=== PATIENT | male | born 1965 | race Caucasian/White ===

== ENCOUNTER 2017-04-11 14:18 | Inpatient (IN) | payer BC ==
[2017-04-11] VITALS (20 sets, daily range): BP systolic 101–130; BP diastolic 61–84; PULSE 80–109; RESP 17–19; Ht 170.2 cm; Wt 94.0 kg
[~2017-04-11] VITALS: Ht 170.2 cm; Wt 94.0 kg
[~2017-04-11 14:18] MED LIST: ACET-2158 PO; ALBU18HF INH; FURO-109 PO; LEVO500T72 PO; LISI-523 PO; Thiamine Hcl PO; UDROBAC PO
[2017-04-11] MEDS ORDERED: LEVO500T72 PO (14:46)
[2017-04-11] MEDS ORDERED: HYDR-902 PO (14:48)
[2017-04-11] MEDS: LACTATED RINGER'S 1,000 ML IV SCH (16:20)
--- NOTE | 2017-04-11 16:21 | HPN ---
Date/Time of Note Date/Time of Note DATE: 04/11/17 TIME: 16:21 Interval H&P Admission Note Pt. seen H&P reviewed: No system changes BILLY TESFAYE PA-C Apr 11, 2017 16:21
[2017-04-11] MEDS ORDERED: HYDROmorphONE 1 MG/ML SYG IV ONE (16:30)
[2017-04-11 16:45] LABS: BASOPHILS % 0.2 % (0.0-2.0); EOSINOPHILS # 0.1 10^3/ul (0.0-0.5); EOSINOPHILS % 0.7 % (0.0-7.0); HEMATOCRIT 37.3 % (42.0-52.0); LYMPHOCYTES # 1.1 10^3/ul (0.8-2.9); LYMPHOCYTES % 12.6 % (15.0-51.0); MEAN CORPUSCULAR HEMOGLOBIN 32.5 pg (29.0-33.0); MEAN CORPUSCULAR HGB CONC 34.9 g/dl (32.0-37.0); MEAN CORPUSCULAR VOLUME 93.3 fl (82.0-101.0); MEAN PLATELET VOLUME 9.9 fl (7.4-10.4); MONOCYTE # 0.7 10^3/ul (0.3-0.9); MONOCYTES % 7.2 % (0.0-11.0); NEUTROPHIL # 7.1 10^3/ul (1.6-7.5); PLATELET COUNT 452 10^3/UL (140-415); RED CELL DISTRIBUTION WIDTH 12.5 % (11.5-14.5)
[2017-04-11] MEDS ORDERED: VANCOMYCIN 1 GM INJ ONE (16:46)
[2017-04-11] MEDS ORDERED: TOBRAMYCIN 1.2 GM POWDER ONE (16:47)
--- NOTE | 2017-04-11 17:04 | RADRPT ---
PROCEDURE: CHEST X-RAY CLINICAL INDICATION: Preop evaluation TECHNIQUE: One-view COMPARISON: 04/01/2014 FINDINGS: Heart size and pulmonary vascularity appears unremarkable. No acute infiltrates, edema, pneumothorax noted. IMPRESSION: No acute process noted radiographically RPTAT: AAOO Physician Lidia Date Time Electronically viewed and signed by Refugio Staton Physician on 04/11/2017 17:03 MB/
[2017-04-11] MEDS ORDERED: MIDAZOLAM 1 MG/ML 2 ML INJ ONE (17:06)
[2017-04-11] MEDS ORDERED: PROPOFOL 20 ML ONE (17:06)
[2017-04-11] MEDS ORDERED: PROPOFOL 100 ML ONE ×2 (17:07→17:12)
[2017-04-11] MEDS ORDERED: DEXAMETHASONE 4 MG/ML 1 ML INJ ONE (17:07)
[2017-04-11] MEDS ORDERED: METOCLOPRAMIDE 10 MG INJ ONE (17:07)
[2017-04-11] MEDS ORDERED: CEFAZOLIN 1 GM INJ ONE (17:07)
[2017-04-11] MEDS ORDERED: ACETAMINOPHEN 1000MG/100ML IV 100 ML ONE (17:07)
[2017-04-11 17:08] LABS: INR 0.98; PROTIME 13.1 Sec (11.9-14.9)
[2017-04-11] MEDS ORDERED: FENTAnyl 50 MCG/ML VIAL ONE (17:08)
[2017-04-11 17:09] LABS: PARTIAL THROMBOPLASTIN TIME 32.2 Sec (25.0-35.0)
[2017-04-11] MEDS ORDERED: ROPIVACAINE 0.5 % 30 ML VIAL ONE (17:10)
[2017-04-11 17:22] LABS: CALCIUM 10.1 mg/dl (8.4-10.2); CREATININE 0.73 mg/dl (0.61-1.24); POTASSIUM 4.3 mmol/L (3.5-5.1)
[2017-04-11] MEDS ORDERED: ONDANSETRON 4 MG INJ ONE (17:42)
[2017-04-11] MEDS ORDERED: PHENYLephrine (100 MCG/ML) 5ML SYG ONE ×3 (17:44→18:31)
[2017-04-11] MEDS ORDERED: POLYMYXIN B 500000 UNIT INJ ONE (18:28)
[2017-04-11] MEDS ORDERED: BACITRACIN 50000 UNITS INJ ONE (18:29)
[2017-04-11] MEDS ORDERED: BUPIVACAINE 0.25% (MPF) 30 ML INJ ONE (18:58)
[2017-04-11] MEDS ORDERED: morphine SULFATE/PF (10 MG/10 ML) INJ ONE (18:58)
[2017-04-11] MEDS ORDERED: KETOROLAC 30 MG INJ ONE (18:59)
[2017-04-11] MEDS ORDERED: BUPIVACAINE 0.25%/EPI (SDV) 30 ML INJ INJ SCH (19:00)
[2017-04-11] MEDS ORDERED: KETOROLAC 30 MG INJ IV SCH (19:00)
[2017-04-11] MEDS ORDERED: TRANEXAMIC ACID 1,000 MG in D5W 100 ML AT INCISION X1 IVPB ONE (19:00)
[2017-04-11] MEDS ORDERED: MORPHINE EPI SCH (19:00)
[2017-04-11] MEDS ORDERED: TRANEXAMIC ACID 1,000 MG in D5W 100 ML AT CLOSURE X1 IVPB ONE (19:00)
--- NOTE | 2017-04-11 19:19 | SIPON ---
Date/Time of Note Date/Time of Note DATE: 04/11/17 TIME: 19:15 Operative Report Preoperative Diagnosis Postop infection right hip Postoperative Diagnosis Same Operation/Procedure Performed Right hip I&D and had a liner exchange placement of antibiotic beads Surgeon see signature line director of assisted living DENNIS aguayo Anesthesia: spinal Estimated blood loss: 150 - 200 ml's Transfusion Required none Specimen Cultures Grafts/Implants 36 mm revision ceramic head and 56 mm neutral polyethylene Complications none SRINIVAS MOHAN Apr 11, 2017 19:19
--- NOTE | 2017-04-11 19:22 | OPR ---
Date/Time of Note Date/Time of Note DATE: 04/11/17 TIME: 19:19 Operative Report Procedure Date: Apr 11, 2017 Preoperative Diagnosis Postop infection right hip Postoperative Diagnosis Same Operation/Procedure Performed Revision of right hip replacement with head and liner exchange as well as I&D and placement of antibiotic beads Surgeon see signature line Fountain Manager Cj Castillo Second Fountain Manager: BILLY TESFAYE PA-C Anesthesia Type: spinal Estimated Blood Loss: 150 - 200 ml's Transfusion none Specimen Cultures Grafts/Implants depuy 36 mm ceramic revision head and 56 x 36 mm polyethylene Tubes/Drains ZACK drain Complications none Pt Condition Post Procedure: stable Disposition: PACU Indications 51-year-old male who had a right hip replacement about 3 months ago. The patient developed increased pain and swelling. Aspiration of the hip showed infection Procedure Description Patient was placed supine on the operating room table. Right hip was prepped and draped in the usual manner. Using the previous anterior approach the right hip was opened. Purulent material was encountered in the intermuscular planes as well as intra-articularly. The hip capsule was opened. There was granulation tissue that was sent for culture. Swabs from the fluid were also sent for culture. Part of the necrotic material was excised. The hip implants appear to be well fixed. The femoral head and acetabular liner was removed. The hip was thoroughly irrigated with 3 L of antibiotic solution. After this a new 56 x 36 mm liner and a new revision ceramic femoral head was placed the hip was reduced and the hip thoroughly irrigated and injected with Marcaine and Toradol. The wound was closed in layers using #1 Vicryl for arthrotomy and fascia 2-0 Vicryl for subcutaneous tissue and 3-0 Monocryl for the skin prior to closure of the wound a drain was placed. Antibiotic beads were prepared with 1 g of vancomycin and 1.2 g of tobramycin. The beads were placed in the wound as well. Patient was transferred to the recovery room in stable condition SRINIVAS MOHAN Apr 11, 2017 19:22
--- NOTE | 2017-04-11 19:30 | PDOCDIS ---
Discharge Instructions DIAGNOSIS Discharge Diagnosis Status post right hip incision and drainage as well as head and liner exchange. CONDITION Patient Condition: Good HOME CARE INSTRUCTIONS: Diet Instructions: Regular ACTIVITY: Activity Restrictions: Slowly Increase Activity Rest between Activity Avoid heavy lifting No Sexual Activity Do not Drive Do not operate Machinery Do not operate Power Tool Avoid Heavy Housework Keep Limb Elevated (May use cold therapy over surgical dressing.) Weight Bearing (Weight-bear as tolerated with front wheeled walker.) Bathing Restrictions: Shower (Mepilex dressing to remain on until seen postoperatively. Keep surgical area clean and dry.) FOLLOW UP/APPOINTMENTS Follow-up Plan Follow-up at postoperative appointment provided to you at your preoperative visit. BILLY TESFAYE PA-C Apr 11, 2017 19:30
[2017-04-11] MEDS: SOD CHLORIDE 0.9% 1,000 ML IV SCH (19:31)
[2017-04-11] MEDS ORDERED: NA PHOSPHATE/BIPHOS 133 ML ENEMA PR PRN (20:00)
[2017-04-11] MEDS ORDERED: BETHANECHOL 25 MG TAB PO PRN (20:00)
[2017-04-11] MEDS ORDERED: NACL 0.9% 3 ML SYG IV SCH (20:00)
[2017-04-11] MEDS ORDERED: SENNA/DOCUSATE NA (8.6MG/50MG) TAB PO PRN (20:00)
[2017-04-11] MEDS ORDERED: DIPHENHYDRAMINE 50 MG INJ IM PRN (20:00)
[2017-04-11] MEDS ORDERED: MAGNESIUM HYDROXIDE 30ML CUP PO PRN (20:00)
[2017-04-11] MEDS ORDERED: DOCUSATE SODIUM 100 MG CAP PO ONE (20:00)
[2017-04-11] MEDS ORDERED: DIPHENHYDRAMINE 50 MG INJ IV PRN (20:00)
[2017-04-11] MEDS ORDERED: BISACODYL 10 MG SUPP PR PRN (20:00)
[2017-04-11] MEDS ORDERED: HYDROmorphONE (0.2 MG/ML) 10ML SYG IV PRN ×3 (20:00)
[2017-04-11] MEDS ORDERED: ASPIRIN (EC) 325 MG TAB PO ONE (20:00)
[2017-04-11] MEDS: ONDANSETRON 4 MG INJ IV SCH (20:00)
[2017-04-11] MEDS ORDERED: oxyCODONE 5 MG TAB PO PRN ×2 (20:00)
[2017-04-11] MEDS ORDERED: MEPERIDINE 25 MG INJ IV PRN (20:00)
[2017-04-11] MEDS ORDERED: NALOXONE (0.4 MG/ML) INJ IV PRN (20:00)
[2017-04-11] MEDS ORDERED: ONDANSETRON 4 MG INJ IV PRN (20:00)
[2017-04-11] MEDS ORDERED: ZOLPIDEM 5 MG TAB PO PRN (20:00)
[2017-04-11] MEDS: CEFAZOLIN 1 GM/50 ML (PMX) 50 ML IVPB SCH (20:15)
[2017-04-11] MEDS: morphine 4 MG/ML VIAL IV PRN (23:50)
[2017-04-12] MEDS: ONDANSETRON 4 MG INJ IV SCH ×3 (01:41→14:00)
[2017-04-12 01:54] VITALS: BP 132/74; PULSE 98; RESP 18
[2017-04-12 02:13] VITALS: BP 119/57; RESP 18
[2017-04-12] MEDS: morphine 4 MG/ML VIAL IV PRN (03:25)
[2017-04-12] MEDS: HYDROCODONE/APAP (10/325) TAB PO PRN (04:37)
[2017-04-12] MEDS: CEFAZOLIN 1 GM/50 ML (PMX) 50 ML IVPB SCH ×2 (04:37→12:00)
[2017-04-12] MEDS: PANTOPRAZOLE (EC) 40 MG TAB PO SCH (05:07)
[2017-04-12] MEDS: SOD CHLORIDE 0.9% 1,000 ML IV SCH ×2 (05:08→23:47)
[2017-04-12 05:31] LABS: BASOPHILS % 0.2 % (0.0-2.0); EOSINOPHILS # 0.1 10^3/ul (0.0-0.5); EOSINOPHILS % 0.7 % (0.0-7.0); HEMATOCRIT 30.5 % (42.0-52.0); HEMOGLOBIN 10.3 g/dl (14.0-18.0); LYMPHOCYTES # 0.9 10^3/ul (0.8-2.9); LYMPHOCYTES % 9.9 % (15.0-51.0); MEAN CORPUSCULAR HEMOGLOBIN 32.3 pg (29.0-33.0); MEAN CORPUSCULAR HGB CONC 33.8 g/dl (32.0-37.0); MEAN CORPUSCULAR VOLUME 95.6 fl (82.0-101.0); MEAN PLATELET VOLUME 10.4 fl (7.4-10.4); MONOCYTE # 0.6 10^3/ul (0.3-0.9); MONOCYTES % 6.7 % (0.0-11.0); NEUTROPHIL # 7.2 10^3/ul (1.6-7.5); NEUTROPHILS % 81.8 % (39.0-77.0); PLATELET COUNT 358 10^3/UL (140-415); RED BLOOD COUNT 3.19 10^6/ul (4.70-6.10); RED CELL DISTRIBUTION WIDTH 12.2 % (11.5-14.5); WHITE BLOOD COUNT 8.8 10^3/ul (4.8-10.8)
[2017-04-12 06:23] LABS: CREATININE 0.85 mg/dl (0.61-1.24); POTASSIUM 4.4 mmol/L (3.5-5.1)
[2017-04-12 06:34] LABS: ADD UMIC YES; UR ASCORBIC ACID NEGATIVE (NEGATIVE); UR BACTERIA FEW /HPF (NONE SEEN); UR BILIRUBIN (Dip) NEGATIVE (NEGATIVE); UR BLOOD (Dip) 1+ mg/dL (NEGATIVE); UR CLARITY SLIGHTLY CLOUDY (CLEAR); UR COLOR YELLOW (YELLOW); UR GLUCOSE (Dip) NEGATIVE (NEGATIVE); UR KETONES (Dip) NEGATIVE (NEGATIVE); UR LEUKOCYTE ESTERASE (Dip) NEGATIVE Leu/ul (NEGATIVE); UR MUCUS FEW /HPF (NONE SEEN); UR NITRITE (Dip) NEGATIVE (NEGATIVE); UR RBC 2 /HPF (0-5); UR SPECIFIC GRAVITY (Dip) 1.019 (1.003-1.030); UR TOTAL PROTEIN (Dip) 1+ mg/dl (NEGATIVE); UR UROBILINOGEN (Dip) NEGATIVE (NEGATIVE)
[2017-04-12 07:55] VITALS: BP 133/79; RESP 20
[2017-04-12] MEDS: KETOROLAC 15 MG INJ IV PRN ×2 (07:55→15:02)
[2017-04-12 08:00] VITALS: BP 129/60; RESP 20
[2017-04-12] MEDS: FERROUS FUMARATE (SR) TAB PO SCH ×2 (08:34→20:52)
[2017-04-12] MEDS: ASPIRIN (EC) 325 MG TAB PO SCH (08:34)
[2017-04-12] MEDS: DOCUSATE SODIUM 100 MG CAP PO SCH ×2 (08:35→20:52)
[2017-04-12] MEDS: oxyCODONE 5 MG TAB PO PRN ×5 (08:39→23:47)
--- NOTE | 2017-04-12 08:47 | CONS ---
Date/Time of Note Date/Time of Note DATE: 04/12/17 TIME: 08:40 Assessment/Plan Assessment/Plan Additional Assessment/Plan ASSESSMENT 51-year-old male with a history of diverticulitis status post colon resection and right hip surgery 3 months ago complicated by postop infection who is now status post revision of right hip replacement with head and liner exchange as well as I&D and placement of antibiotic beads. PLAN -Continue pain medications and adjust as needed -DVT prophylaxis per Ortho Consultation Date/Type/Reason Admit Date/Time Apr 11, 2017 at 14:18 Reason for Consultation Medical management Hx of Present Illness This is a 51-year-old male with a history of diverticulitis status post colon resection and right hip surgery 3 months ago complicated by postop infection. Patient is admitted under orthopedic service and underwent revision of right hip replacement with head and liner exchange as well as I&D and placement of antibiotic beads. Consult was placed for medical management. Patient's only complaint at this time is pain at the surgical site otherwise denied shortness of breath, chest pain, fever, chills, nausea or vomiting. He is alert and oriented 4 and actually looks comfortable. Social History Smoking Status: Former smoker Exam/Review of Systems Vital Signs Vitals Vital Signs Date Time Temp Pulse Resp B/P Pulse Ox O2 Delivery O2 Flow Rate FiO2 04/12/17 07:55 97.5 107 20 133/79 96 04/12/17 01:54 Nasal Cannula 2.0 Intake and Output 04/11/17 04/11/17 04/12/17 14:59 22:59 06:59 Intake Total 2000 ml 2450 ml Output Total 650 ml 2070 ml Balance 1350 ml 380 ml Exam Constitutional: alert, oriented, well developed Head: atraumatic, normocephalic Eyes: EOMI, PERRL Respiratory: clear to auscultation, normal air movement Cardiovascular: nl pulses, regular rate and rhythm Gastrointestinal: non-tender, soft Extremities: other (Right hip/thigh is covered with dressing was bled the output and ZACK drain) Results Result Diagram: 04/12/17 0449 04/12/17 0449 Results 24 hrs Laboratory Tests Test 04/11/17 16:30 04/12/17 04:49 04/12/17 04:50 White Blood Count 9.0 8.8 Red Blood Count 4.00 L 3.19 #L Hemoglobin 13.0 L 10.3 #L Hematocrit 37.3 L 30.5 L Mean Corpuscular Volume 93.3 95.6 Mean Corpuscular Hemoglobin 32.5 32.3 Mean Corpuscular Hemoglobin Concent 34.9 33.8 Red Cell Distribution Width 12.5 12.2 Platelet Count 452 H 358 # Mean Platelet Volume 9.9 # 10.4 Neutrophils % 79.0 H 81.8 H Lymphocytes % 12.6 L 9.9 L Monocytes % 7.2 6.7 Eosinophils % 0.7 0.7 Basophils % 0.2 0.2 Nucleated Red Blood Cells % 0.0 0.0 Neutrophils # 7.1 7.2 Lymphocytes # 1.1 0.9 Monocytes # 0.7 0.6 Eosinophils # 0.1 0.1 Basophils # 0.0 0.0 Nucleated Red Blood Cells # 0.0 0.0 Prothrombin Time 13.1 Prothrombin Time Ratio 1.0 INR International Normalized Ratio 0.98 Activated Partial Thromboplast Time 32.2 Sodium Level 138 137 Potassium Level 4.3 4.4 Chloride Level 98 99 Carbon Dioxide Level 29 29 Anion Gap 15 13 Blood Urea Nitrogen 10 13 Creatinine 0.73 0.85 Glucose Level 143 192 Calcium Level 10.1 9.0 Urine Color YELLOW Urine Clarity SLIGHTLY CLOUDY A Urine pH 5.0 Urine Specific [place] 1.019 Urine Ketones NEGATIVE Urine Nitrite NEGATIVE Urine Bilirubin NEGATIVE Urine Urobilinogen NEGATIVE Urine Leukocyte Esterase NEGATIVE Urine Microscopic RBC 2 Urine Microscopic WBC 3 Urine Bacteria FEW A Urine Mucus FEW A Urine Hemoglobin 1+ H Urine Glucose NEGATIVE Urine Total Protein 1+ H Medications Medications Current Medications Lactated Ringer's (Lr) 1,000 ml @ 25 mls/hr Q24H IV ; Start 04/11/17 at 16:20 Morphine Sulfate (Duramorph) 5 mg PREOP EPI ; Start 04/11/17 at 19:00 Ketorolac Tromethamine (Toradol) 30 mg PREOP IV ; Start 04/11/17 at 19:00; Stop 04/14/17 at 18:59 Bupivacaine HCl/ Epinephrine Bitart 30 ml 30 ml PREOP INJ ; Start 04/11/17 at 19:00 Sodium Chloride (NS) 1,000 ml @ 80 mls/hr [id number] IV Last administered on t 05:08; Admin Dose 80 MLS/HR; Start 04/11/17 at 19:31 Oxycodone HCl (Roxicodone) 20 mg Q3H PRN PO PAIN LEVEL 8-10; Start 04/11/17 at 20:00 Oxycodone HCl (Roxicodone) 10 mg Q3H PRN PO PAIN LEVEL 4-7; Start 04/11/17 at 20:00 Oxycodone HCl (Roxicodone) 5 mg Q3H PRN PO PAIN LEVEL 1-3; Start 04/11/17 at 20:00 Zolpidem Tartrate (Ambien) 5 mg HS PRN PO INSOMNIA; Start 04/11/17 at 20:00 Ondansetron HCl 4 mg 4 mg Q6H IV Last administered on 04/12/17 08:00; Admin Dose 4 MG; Start 04/11/17 at 20:00; Stop 04/12/17 at 14:01 Cefazolin Sodium (Ancef 1 Gm/50 ml (Pmx)) 50 ml @ 100 mls/hr Q8H IVPB Last administered on 04/12/17 04:37; Admin Dose 100 MLS/HR; Start 04/11/17 at 20: 00; Stop 04/12/17 at 12:29 Celecoxib (Celebrex) 100 mg BID PO ; Start 04/12/17 at 09:00 Pantoprazole (Protonix Tab) 40 mg DAILY@06 PO Last administered on 04/12/17 05:07; Admin Dose 40 MG; Start 04/12/17 at 06:00 Docusate Sodium/ Ferrous Fumarate (Lina-Sequels) 1 tab BID PO Last administered on 04/12/17 08:34; Admin Dose 1 TAB; Start 04/12/17 at 09:00 Docusate Sodium (Colace) 200 mg BID PO Last administered on 04/12/17 08:35; Admin Dose 200 MG; Start 04/12/17 at 09:00; Stop 04/14/17 at 21:01 Simethicone (Mylicon) 80 mg TID PRN PO DISTENSION/GAS/BLOATING; Start at 20:00 Senna/Docusate Sodium (Senokot-S) 2 tab BID PRN PO CONSTIPATION; Start at 20:00 Magnesium Hydroxide (Milk Of Mag) 30 ml HS PRN PO CONSTIPATION; Start at 20:00 Bisacodyl (Dulcolax Supp) 10 mg DAILY PRN [place] CONSTIPATION; Start 04/11/17 at 20:00 Sodium Biphosphate/ Sodium Phosphate (Fleet Enema) 133 ml DAILY PRN [place] CONSTIPATION; Start 04/11/17 at 20:00 Diphenhydramine HCl (Benadryl) 25 mg Q4H PRN IM ITCHING OR RASH; Start at 20:00 Ketorolac Tromethamine (Toradol) 15 mg PRN PRN IV PAIN Last administered on 07:55; Admin Dose 15 MG; Start 04/11/17 at 20:00; Stop 04/15/17 at 19: 59 Naloxone HCl (Narcan) 0.2 mg Q2M PRN IV DECREASED REPIRATORY RATE; Start at 20:00 Aspirin (Ecotrin) 325 mg DAILY PO Last administered on 04/12/17 08:34; Admin Dose 325 MG; Start 04/12/17 at 09:00 Morphine Sulfate (morphine) 4 mg Q4H PRN IV PAIN LEVEL 7-10 Last administered on 04/12/17 03:25; Admin Dose 4 MG; Start 04/12/17 at 00:00 Acetaminophen/ Hydrocodone Bitart ([place] (10/325)) 1 tab Q4H PRN PO PAIN Last administered on 04/12/17 04:37; Admin Dose 1 TAB; Start 04/12/17 at 00:00 AMILCAR FRY MD Apr 12, 2017 08:47
[2017-04-12] MEDS ORDERED: CELECOXIB 200 MG CAP PO SCH (09:00)
[2017-04-12] MEDS ORDERED: VANCOMYCIN IV PER PHARMACY XX SCH (09:30)
--- NOTE | 2017-04-12 10:21 | CONS ---
DATE OF ADMISSION: 04/11/2017 DATE OF CONSULTATION: 04/12/2017 TYPE OF CONSULTATION: Infectious disease. REASON FOR CONSULTATION: Antibiotic management. HISTORY OF PRESENT ILLNESS: Carlos Reynaga is a 51-year-old male with a number of problems who is a dmitted now for orthopedic problems, and is being seen for antibiotic management. Past problems include: 1. History of diverticulitis, status post colon resection. 2. Right hip surgery 3 months ago, complicated by postoperative infection. The patient was admitte d under the orthopedic service, underwent revision of right hip replacement with head and liner exch ivan as well as I and D and placement of antibiotic beads. The patient complains of pain at the freddy gical site, otherwise without shortness of breath or chest pain. PAST MEDICAL HISTORY: Operations as outlined. FAMILY HISTORY: Noncontributory. SOCIAL HISTORY: He is a former smoker. He does not drink or abuse drugs. ALLERGIES: NONE TO PENICILLIN, SULFA OR FOODS. MEDICATIONS: Per chart. REVIEW OF SYSTEMS: Noncontributory. PHYSICAL EXAMINATION: GENERAL: The patient is alert, responsive and complaining of pain in the hip, in no acute distress. VITAL SIGNS: Stable. He is afebrile. SKIN: Without generalized rash. HEENT: Within normal limits. NECK: Supple. LYMPH NODES: None palpable. CHEST: Decreased breath sounds at the bases. HEART: Without murmur or gallop. ABDOMEN: Soft, nontender, without organosplenomegaly or masses. EXTREMITIES: His right hip and thigh are covered with dressing. He has a ZACK drain. RECTAL AND GENITAL: Deferred. NEUROLOGIC: No focal neurological abnormalities. ANCILLARY LABORATORY DATA: The patient has a white count of 8.8, H and H of 10.3 and 30.5, platelet count 358,000. BUN and creatinine 13/0.85. IMPRESSION AND PLAN: Patient is currently on cefazolin. White count today is 8.8. He should be on vancomycin. We are going to switch him over to vancomycin. He will require probably 6 weeks of IV antibiotic therapy. I will dictate my findings to the hospitalist, to Dr. Rivas, and Dr. Yaw mccarthy. It should be noted that, if this is not successful, he may need the hip to be removed and a spacer p laced, but we will see how he does on IV antibiotics. Dictated By: MARINA CORDON MD, JD/SEBASTIEN Conf#: [id number] DID#: [id number] CC: SRINIVAS MOHAN MD;*EndCC*
[2017-04-12] MEDS ORDERED: VANCOMYCIN 1.75 GM in NS 500 ML IVPB SCH (10:30)
[2017-04-12] MEDS: CELECOXIB 100 MG CAP PO SCH ×2 (11:58→21:55)
--- NOTE | 2017-04-12 12:10 | PN ---
Date/Time of Note Date/Time of Note DATE: 04/12/17 TIME: 12:03 Assessment/Plan VTE Prophylaxis VTE Prophylaxis Intervention: ambulation, SCD's, other (Aspirin 325 mg) Lines/Catheters IV Catheter Type (from Nrsg): Saline Lock Gil in Place (from Nrsg): Yes Assessment/Plan Assessment/Plan -Pain Meds as needed -Dressing is clean and intact. -OOB with PT -ASA/SCDs for DVT Prophylaxis -Continue monitoring with Internal Medicine -Patient Stable -Expected discharge home with home health tomorrow. Patient has nobody at the house today. Subjective 24 Hr Interval Summary 51-year-old male postop day 1 status post right hip incision and drainage with head and liner exchange due to right hip infection status post total hip arthroplasty. No acute events overnight. Pain is moderate patient states is controlled. Has initiated physical therapy and has been up and walking. Currently seated comfortably in bed right now with hip at 90. No pain while seated. Denies any chest pain/tightness, shortness of breath. Denies any calf pain. Pain Control: moderate Exam/Review of Systems Vital Signs Vitals Vital Signs Date Time Temp Pulse Resp B/P Pulse Ox O2 Delivery O2 Flow Rate FiO2 04/12/17 07:55 97.5 107 20 133/79 96 04/12/17 01:54 Nasal Cannula 2.0 Intake and Output 04/11/17 04/11/17 04/12/17 15:00 23:00 07:00 Intake Total 2000 ml 2450 ml Output Total 650 ml 2070 ml Balance 1350 ml 380 ml Exam Free Text/Dictation -No complications with dressing intact. -Thigh soft -5/5 Quadriceps, Tibialis Anterior, EHL Gastrocnemius/Soleus and Peroneals -Normal Sensation -Palpable DP/PT, Capillary Refill <2 secs -No Distal Edema -Negative Maria Teresa Sign/No calf pain -Toes Freely Movable Constitutional: alert, oriented, well developed Results Result Diagram: 04/12/17 0449 04/12/17 0449 BILLY TESFAYE PA-C Apr 12, 2017 12:10
[2017-04-12 14:36] VITALS: BP 116/69; RESP 20
[2017-04-12] MEDS ORDERED: LIDOCAINE 1% (MPF) 5 ML VIAL SC ONE (16:00)
[2017-04-12] MEDS: LACTATED RINGER'S 1,000 ML IV SCH (16:20)
[2017-04-12] MEDS: CEFTRIAXONE 2 GM/50 ML (PMX) 50 ML IVPB SCH (19:09)
[2017-04-12 20:21] VITALS: BP 112/58; RESP 20
--- NOTE | 2017-04-12 21:58 | CONS ---
DATE OF ADMISSION: 04/11/2017 DATE OF CONSULTATION: ADDENDUM The patient had cultures done in the office prior to his coming in to the hospital and his cultures are growing out group B Strep or Strep agalactiae, which is sensitive to multiple antibiotics includ ing ceftriaxone and Levaquin. We are going to stop the vancomycin and we are going to place him on ceftriaxone 2 grams IV piggyback q.24h. x6 weeks and Levaquin 750 mg p.o. daily for 6 weeks. A PICC line will be placed. I have discussed this with Dr. Mohan. I want to thank him for asking us to see this yaritza gentleman in consultation. Dictated By: MARINA CORDON MD, JD/SEBASTIEN Conf#: [id number] DID#: [id number] CC: SRINIVAS MOHAN MD;*End*
[2017-04-12] MEDS ORDERED: VANCOMYCIN 1.25 GM in DEXTROSE 5% 250 ML IVPB SCH (22:00)
[2017-04-13 02:00] VITALS: BP 109/61; RESP 19
[2017-04-13] MEDS: oxyCODONE 5 MG TAB PO PRN ×3 (05:10→17:07)
[2017-04-13] MEDS: PANTOPRAZOLE (EC) 40 MG TAB PO SCH (05:53)
[2017-04-13 05:54] LABS: BASOPHILS % 0.3 % (0.0-2.0); EOSINOPHILS # 0.1 10^3/ul (0.0-0.5); EOSINOPHILS % 1.4 % (0.0-7.0); LYMPHOCYTES # 1.1 10^3/ul (0.8-2.9); LYMPHOCYTES % 12.1 % (15.0-51.0); MEAN CORPUSCULAR HEMOGLOBIN 32.4 pg (29.0-33.0); MEAN CORPUSCULAR HGB CONC 33.3 g/dl (32.0-37.0); MEAN CORPUSCULAR VOLUME 97.1 fl (82.0-101.0); MEAN PLATELET VOLUME 10.4 fl (7.4-10.4); MONOCYTE # 0.7 10^3/ul (0.3-0.9); MONOCYTES % 7.5 % (0.0-11.0); NEUTROPHIL # 7.2 10^3/ul (1.6-7.5); NEUTROPHILS % 78.4 % (39.0-77.0); PLATELET COUNT 324 10^3/UL (140-415); RED BLOOD COUNT 3.09 10^6/ul (4.70-6.10); RED CELL DISTRIBUTION WIDTH 12.4 % (11.5-14.5); WHITE BLOOD COUNT 9.2 10^3/ul (4.8-10.8)
[2017-04-13] MEDS ORDERED: LEVOFLOXACIN 750 MG TABLET PO SCH (06:00)
[2017-04-13 06:23] LABS: CALCIUM 9.4 mg/dl (8.4-10.2); CREATININE 0.86 mg/dl (0.61-1.24); POTASSIUM 4.6 mmol/L (3.5-5.1)
--- NOTE | 2017-04-13 08:04 | PN ---
Date/Time of Note Date/Time of Note DATE: 04/13/17 TIME: 08:02 Assessment/Plan VTE Prophylaxis VTE Prophylaxis Intervention: ambulation, SCD's, other (Aspirin 325 mg) Lines/Catheters IV Catheter Type (from Nrsg): Peripheral IV Gil in Place (from Nrsg): No Assessment/Plan Assessment/Plan -Pain Meds as needed -ASA for DVT Prophylaxis x 4 weeks outpatient discussed. -Continue monitoring as outpatient on discharge -Follow-up at scheduled postop outpatient appointment or sooner if there is any issue. -Hip precautions discussed -Patient Stable -Discharge to Home with home health. Patient will be discharged after PICC line placement and Rocephin transfusion today. Will be followed by infectious disease for the next 6 weeks. Subjective 24 Hr Interval Summary 51-year-old male postop day 2 status post right hip incision and drainage with replacement head and liner exchange. Continues to improve. Continues with mild pain to the hip mostly with transitioning from lying supine to sitting and from sitting to standing. Continues with physical therapy up and moving. Denies any chest pain/tightness, shortness of breath or calf pain. Patient had consult with infectious disease yesterday. PICC line being placed today. Expected discharge home today after Rocephin transfusion. Pain Control: well controlled Exam/Review of Systems Vital Signs Vitals Vital Signs Date Time Temp Pulse Resp B/P Pulse Ox O2 Delivery O2 Flow Rate FiO2 04/13/17 02:00 98.0 95 19 109/61 98 04/12/17 01:54 Nasal Cannula 2.0 Intake and Output 04/12/17 04/12/17 04/13/17 15:00 23:00 07:00 Intake Total 550 ml 790 ml 1460 ml Output Total 60 ml 2100 ml Balance 490 ml 790 ml -640 ml Exam Free Text/Dictation -No complications with dressing intact. -Thigh soft -5/5 Quadriceps, Tibialis Anterior, EHL Gastrocnemius/Soleus and Peroneals -Normal Sensation -Palpable DP/PT, Capillary Refill <2 secs -No Distal Edema -Negative Maria Teresa Sign/No calf pain -Toes Freely Movable Constitutional: alert, oriented, well developed Results Result Diagram: 04/13/17 0456 04/13/17 0456 BILLY TESFAYE PA-C Apr 13, 2017 08:04
[2017-04-13 08:30] VITALS: BP 112/71; RESP 19
[2017-04-13] MEDS: ASPIRIN (EC) 325 MG TAB PO SCH (08:50)
[2017-04-13] MEDS: DOCUSATE SODIUM 100 MG CAP PO SCH (08:50)
[2017-04-13] MEDS: KETOROLAC 15 MG INJ IV PRN (08:50)
[2017-04-13] MEDS: CELECOXIB 100 MG CAP PO SCH (08:50)
[2017-04-13] MEDS: FERROUS FUMARATE (SR) TAB PO SCH (08:50)
[2017-04-13] MEDS: SOD CHLORIDE 0.9% 1,000 ML IV SCH (09:01)
--- NOTE | 2017-04-13 10:51 | RADRPT ---
PROCEDURE: XR Chest. CLINICAL INDICATION: Check PICC line position. TECHNIQUE: Single frontal view. COMPARISON: No prior study is available for comparison. FINDINGS: There is a left arm PICC line with the tip in the mid to lower superior vena cava. The lungs are cl ear. The heart size is normal. There is no pleural effusion. There is no pneumothorax. IMPRESSION: 1. Left arm PICC line tip in satisfactory position. 2. Otherwise normal chest radiograph. RPTAT: QQ .Peter Watson MD, MD Date Time Electronically viewed and signed by .Peter Watson MD, MD on 04/13/2017 10:51 .R/
--- NOTE | 2017-04-13 10:52 | RADRPT ---
PROCEDURE: Ultrasound guidance for placement of needle in left upper extremity vein. CLINICAL INDICATION: Venous access. TECHNIQUE: Limited sonography of the left upper extremity was performed. Ultrasound images were recorded and s tored in the patient's medical record. COMPARISON: None. FINDINGS: The ultrasound images demonstrate a patent left upper extremity vein. The PICC line was inserted by the PICC line nurse. IMPRESSION: 1. Ultrasound guidance for a needle placement in a left upper extremity vein. 2. The left upper extremity vein is patent. RPTAT: QQ .Pteer Watson MD, MD Date Time Electronically viewed and signed by .Peter Watson MD, MD on 04/13/2017 10:51 .R/
[2017-04-13] MEDS ORDERED: SOD CHLORIDE 0.9% 100 ML ONE (10:54)
[2017-04-13] MEDS: HYDROCODONE/APAP (10/325) TAB PO PRN (13:21)
--- NOTE | 2017-04-13 14:49 | CONS ---
Date/Time of Note Date/Time of Note DATE: 04/13/17 TIME: 14:47 Consult Date/Type/Reason Admit Date/Time Apr 11, 2017 at 14:18 Initial Consult Date Subjective No acute events overnight, ordered for PICC, worked with physical therapy. Objective Vital Signs Date Time Temp Pulse Resp B/P Pulse Ox O2 Delivery O2 Flow Rate FiO2 04/13/17 08:30 98.9 110 19 112/71 94 04/12/17 01:54 Nasal Cannula 2.0 Intake and Output 04/12/17 04/12/17 04/13/17 15:00 23:00 07:00 Intake Total 550 ml 790 ml 1460 ml Output Total 60 ml 2100 ml Balance 490 ml 790 ml -640 ml Exam GENERAL: The patient is alert, responsive in no acute distress. HEENT: PERRLA, EOMI NECK: Supple. CHEST: Clear to auscultation bilaterally HEART: Without murmur or gallop. ABDOMEN: Soft, nontender, without organosplenomegaly or masses. EXTREMITIES: His right hip and thigh are covered with dressing. NEUROLOGIC: No focal neurological abnormalities. Results/Medications Result Diagram: 04/13/17 0456 04/13/17 0456 Results 24 hrs Laboratory Tests Test 04/13/17 04:56 White Blood Count 9.2 Red Blood Count 3.09 L Hemoglobin 10.0 L Hematocrit 30.0 L Mean Corpuscular Volume 97.1 Mean Corpuscular Hemoglobin 32.4 Mean Corpuscular Hemoglobin Concent 33.3 Red Cell Distribution Width 12.4 Platelet Count 324 Mean Platelet Volume 10.4 Neutrophils % 78.4 H Lymphocytes % 12.1 L Monocytes % 7.5 Eosinophils % 1.4 Basophils % 0.3 Nucleated Red Blood Cells % 0.0 Neutrophils # 7.2 Lymphocytes # 1.1 Monocytes # 0.7 Eosinophils # 0.1 Basophils # 0.0 Nucleated Red Blood Cells # 0.0 Sodium Level 138 Potassium Level 4.6 Chloride Level 99 Carbon Dioxide Level 31 Anion Gap 13 Blood Urea Nitrogen 10 Creatinine 0.86 Glucose Level 206 Calcium Level 9.4 Medications Current Medications Lactated Ringer's (Lr) 1,000 ml @ 25 mls/hr Q24H IV ; Start 04/11/17 at 16:20 Morphine Sulfate (Duramorph) 5 mg PREOP EPI ; Start 04/11/17 at 19:00 Ketorolac Tromethamine (Toradol) 30 mg PREOP IV ; Start 04/11/17 at 19:00; Stop 04/14/17 at 18:59 Bupivacaine HCl/ Epinephrine Bitart 30 ml 30 ml PREOP INJ ; Start 04/11/17 at 19:00 Sodium Chloride (NS) 1,000 ml @ 80 mls/hr [id number] IV Last administered on 23:47; Admin Dose 80 MLS/HR; Start 04/11/17 at 19:31 Oxycodone HCl (Roxicodone) 20 mg Q3H PRN PO PAIN LEVEL 8-10 Last administered on 04/13/17 11:06; Admin Dose 20 MG; Start 04/11/17 at 20:00 Oxycodone HCl (Roxicodone) 10 mg Q3H PRN PO PAIN LEVEL 4-7; Start 04/11/17 at 20:00 Oxycodone HCl (Roxicodone) 5 mg Q3H PRN PO PAIN LEVEL 1-3; Start 04/11/17 at 20:00 Zolpidem Tartrate (Ambien) 5 mg HS PRN PO INSOMNIA; Start 04/11/17 at 20:00 Pantoprazole (Protonix Tab) 40 mg DAILY@06 PO Last administered on 04/13/17 05:53; Admin Dose 40 MG; Start 04/12/17 at 06:00 Docusate Sodium/ Ferrous Fumarate (Lina-Sequels) 1 tab BID PO Last administered on 04/13/17 08:50; Admin Dose 1 TAB; Start 04/12/17 at 09:00 Docusate Sodium (Colace) 200 mg BID PO Last administered on 04/13/17 08:50; Admin Dose 200 MG; Start 04/12/17 at 09:00; Stop 04/14/17 at 21:01 Simethicone (Mylicon) 80 mg TID PRN PO DISTENSION/GAS/BLOATING; Start at 20:00 Senna/Docusate Sodium (Senokot-S) 2 tab BID PRN PO CONSTIPATION; Start at 20:00 Magnesium Hydroxide (Milk Of Mag) 30 ml HS PRN PO CONSTIPATION; Start at 20:00 Bisacodyl (Dulcolax Supp) 10 mg DAILY PRN HI CONSTIPATION; Start 04/11/17 at 20:00 Sodium Biphosphate/ Sodium Phosphate (Fleet Enema) 133 ml DAILY PRN HI CONSTIPATION; Start 04/11/17 at 20:00 Diphenhydramine HCl (Benadryl) 25 mg Q4H PRN IM ITCHING OR RASH; Start at 20:00 Ketorolac Tromethamine (Toradol) 15 mg PRN PRN IV PAIN Last administered on 08:50; Admin Dose 15 MG; Start 04/11/17 at 20:00; Stop 04/15/17 at 19: 59 Naloxone HCl (Narcan) 0.2 mg Q2M PRN IV DECREASED REPIRATORY RATE; Start at 20:00 Aspirin (Ecotrin) 325 mg DAILY PO Last administered on 04/13/17 08:50; Admin Dose 325 MG; Start 04/12/17 at 09:00 Morphine Sulfate (morphine) 4 mg Q4H PRN IV PAIN LEVEL 7-10 Last administered on 04/12/17 03:25; Admin Dose 4 MG; Start 04/12/17 at 00:00 Acetaminophen/ Hydrocodone Bitart ([place] (10/325)) 1 tab Q4H PRN PO PAIN Last administered on 04/13/17 13:21; Admin Dose 1 TAB; Start 04/12/17 at 00:00 Celecoxib 100 mg 100 mg BID PO Last administered on 04/13/17 08:50; Admin Dose 100 MG; Start 04/12/17 at 12:00 Ceftriaxone Sodium (Rocephin) 50 ml @ 100 mls/hr Q24H IVPB Last administered on 04/12/17 19:09; Admin Dose 100 MLS/HR; Start 04/12/17 at 19:00 Levofloxacin (Levaquin) 750 mg DAILY@06 PO Last administered on 04/13/17 05: 53; Admin Dose 750 MG; Start 04/13/17 at 06:00 IV Flush (NS 10 ml) 10 ml PRN PRN IV IV PROTOCOL; Start 04/13/17 at 11:00 Assessment/Plan Chief Complaint/Hosp Course ASSESSMENT: 51-year-old male with a history of diverticulitis status post colon resection and right hip surgery 3 months ago complicated by postop infection who is now status post revision of right hip replacement with head and liner exchange as well as I&D and placement of antibiotic beads, POD # 2. PLAN -Continue pain medications and adjust as needed -DVT prophylaxis per Ortho -IV antibiotics per ID and orthopedics team We will continue to follow along with you. Problems: TERRY MOREIRA Apr 13, 2017 14:49
[2017-04-13 16:00] VITALS: BP 111/66; RESP 20
[2017-04-13] MEDS: LACTATED RINGER'S 1,000 ML IV SCH (16:20)
[2017-04-13] MEDS: CEFTRIAXONE 2 GM/50 ML (PMX) 50 ML IVPB SCH (18:10)
--- NOTE | 2017-04-13 22:07 | PN ---
DATE: 04/13/2017 INFECTIOUS DISEASE PROGRESS NOTE SUBJECTIVE: No acute changes overnight. The patient is alert awaiting to be discharged home. He is in no distress and afebrile. ANTIMICROBIALS: 1. Rocephin. 2. Levaquin. DIAGNOSTICS: The patient had PICC line placed this morning, that was confirmed by chest x-ray. PHYSICAL EXAMINATION: GENERAL: Well-developed, middle-aged white man who is in no distress. HEENT: Head atraumatic, normocephalic. Sclerae anicteric. Buccal mucosa pink. NECK: Supple. CHEST: Rise symmetrical. Breath sounds clear. HEART: S1, S2. ABDOMEN: Soft, bowel tones present. EXTREMITIES: Without cyanosis. ASSESSMENT: History of right hip surgery complicated by postoperative infection, with culture grew group B strep or strep agalactia. The patient is status post revision of right hip replacement with head and liner exchange, as well as I and D and placement of antibiotic beads. PLAN: The patient remains stable pending discharge planning on Rocephin and Levaquin for 6 weeks. Dictated By: LIZBETH TOUSSAINT [employer] for MARINA CORDON MD NI/NTS Conf#: [id number] DID#: [id number] CC: SRINIVAS MOHAN MD;*EndCC*
--- NOTE | 2017-04-14 08:14 | DS ---
Date/Time of Note Date/Time of Note DATE: 04/14/17 TIME: 08:12 Discharge Summary Admission/Discharge Info Admit Date/Time Apr 11, 2017 at 14:18 Discharge Date/Time Apr 13, 2017 at 19:15 Discharge Diagnosis Status post right hip incision and drainage as well as head and liner exchange. Patient Condition: Good Hospital Course On the day of admission, the patient underwent right hip incision and drainage as well as head and liner exchange status post infection Intraoperative complications: None Postoperative complications: None The patient was given prophylactic antibiotics and anticoagulants. On the day of surgery and first postoperative day patient was started on gait training and was taught usual restrictions following hip replacement On postoperative day 1 dressing was clean dry and intact. No complications were observed. On the day of discharge, the wound was clean and healing well; there was no sign of infection. Wound care instructions were discussed with the patient. Discharge Temperature: 98.4 Discharge White Blood Cell Count: 9.2 Discharge Hemoglobin: 10 The patient was discharged home with home health. Arrangements were made for visiting nurses and home health/physical therapy. Patient also had PICC line placement while in hospital will continue to get Rocephin and vancomycin transfusion at home for 6 weeks status post hip infection. Currently being followed by infectious disease Dr. Ray. The patient will be seen in office at scheduled postoperative evaluation date given on their preoperative exam. Should patient complain of any problems prior to scheduled postoperative evaluation date, they may call into outpatient clinic to determine if they need to be scheduled at sooner appointment to be seen immediately if needed. Discharge medications: As per medication reconciliation form Diet: Same as preadmission diet. This is Billy Lanier PA-C dictating discharge summary for Dr. Armenta. Home Meds Reported Medications Hydrocodone/Acetaminophen ([place] 10-325 Tablet) 1 Each Tablet, 1 EACH PO TID Y for PAIN, TAB 04/11/17 Levofloxacin* (Levaquin*) 500 Mg Tablet, 500 MG PO DAILY, TAB STARTED 04-07-17 FOR 14 DAYS 04/11/17 Discontinued Scripts [Thiamine Hcl] 100 MG TAB No Conflict Check, 100 MG PO DAILY for 30 Days, TAB Prov:LIZA POON MD 04/04/14 Lisinopril* (Zestril*) 5 Mg Tab, 2.5 MG PO DAILY, #14 Prov:LIZA POON MD 04/04/14 Levofloxacin* (Levaquin*) 500 Mg Tab, 500 MG PO DAILY@06, #5 Prov:LIZA POON MD 04/04/14 Guaifenesin-Codeine Phosphate* (Robitussin* AC) 5 Ml Syrup, 10 ML PO Q4H Y for COUGH for 14 Days Prov:LIZA POON MD 04/04/14 Furosemide* (Lasix*) 40 Mg Tab, 40 MG PO BID DIURETICS, #6 Prov:LIZA POON MD 04/04/14 Albuterol Sulfate* (Ventolin HFA*) 1 Puff Inha, 2 PUFF INH Q6H RESP THERAPY Y for SHORTNESS OF BREATH for 10 Days, 2 Refills Prov:LIZA POON MD 04/04/14 Acetaminophen (TYLENOL 325 MG TAB) 325 Mg Tab, 650 MG PO Q6H Y for PAIN LEVEL 1- 3 OR FEVER for 10 Days, TAB Prov:LIZA POON MD 04/04/14 Follow-up Plan Follow-up at postoperative appointment provided to you at your preoperative visit. Primary Care Provider Not On Staff Doctor BILLY TESFAYE PA-C Apr 14, 2017 08:14
== END 2017-04-13 19:15 | disposition home health service (06) | DRG 468 ==
LOC: REC 14:18 → MS1 21:10
PROVIDERS: ADMIT Orthopaedic Surgery; ATTEND Orthopaedic Surgery
PROC: 0SP90JZ Removal of Synthetic Substitute from Right Hip Joint, Open Approach (ICD-10-PCS; 2017-04-11)
PROC: 3E0U029 Introduction of Other Anti-infective into Joints, Open Approach (ICD-10-PCS; 2017-04-11)
PROC: 0SR904A Replacement of Right Hip Joint with Ceramic on Polyethylene Synthetic Substitute, Uncemented, Open Approach (ICD-10-PCS; principal; 2017-04-11 16:00)
PROC: 02HV33Z Insertion of Infusion Device into Superior Vena Cava, Percutaneous Approach (ICD-10-PCS; 2017-04-13)
DX: T84.51XA Infection and inflammatory reaction due to internal right hip prosthesis, initial encounter (principal); B95.1 Streptococcus, group B, as the cause of diseases classified elsewhere; B95.4 Other streptococcus as the cause of diseases classified elsewhere
CPT/HCPCS: 36569; 71010; 76937; 80048; 81001; 85025; 85610; 85730; 86850; 86900; 86901; 87070; 87086; 88300; 88304; 97110; 97116; 97163; 97165; 97530; 97535; C1713; J0131; J0171; J0690; J0735; J1100; J1170; J1885; J2250; J2270; J2274; J2370; J2405; J2765; J2795; J3010; J3370; J7030; J7040; J7070; J7120

== ENCOUNTER 2017-04-17 10:29 | Emergency (ER) | payer BC ==
[~2017-04-17] VITALS: Ht 172.7 cm; Wt 99.2 kg
[~2017-04-17 10:29] MED LIST changes: -ACET-2158 PO; -ALBU18HF INH; -FURO-109 PO; +HYDR-902 PO; -LISI-523 PO; -Thiamine Hcl PO; -UDROBAC PO
[2017-04-17 10:30] VITALS: Ht 172.7 cm; Wt 99.2 kg
[2017-04-17 11:58] LABS: BASOPHILS % 0.4 % (0.0-2.0); EOSINOPHILS # 0.2 10^3/ul (0.0-0.5); EOSINOPHILS % 2.4 % (0.0-7.0); HEMATOCRIT 33.6 % (42.0-52.0); HEMOGLOBIN 11.4 g/dl (14.0-18.0); LYMPHOCYTES # 1.3 10^3/ul (0.8-2.9); LYMPHOCYTES % 19.2 % (15.0-51.0); MEAN CORPUSCULAR HEMOGLOBIN 32.5 pg (29.0-33.0); MEAN CORPUSCULAR HGB CONC 33.9 g/dl (32.0-37.0); MEAN CORPUSCULAR VOLUME 95.7 fl (82.0-101.0); MEAN PLATELET VOLUME 10.6 fl (7.4-10.4); MONOCYTE # 0.7 10^3/ul (0.3-0.9); MONOCYTES % 10.6 % (0.0-11.0); NEUTROPHIL # 4.7 10^3/ul (1.6-7.5); PLATELET COUNT 302 10^3/UL (140-415); RED BLOOD COUNT 3.51 10^6/ul (4.70-6.10); RED CELL DISTRIBUTION WIDTH 12.3 % (11.5-14.5)
[2017-04-17] MEDS ORDERED: LACT1CAP56 PO (12:11)
[2017-04-17] MEDS ORDERED: DOCU-144 PO (12:12)
[2017-04-17] MEDS ORDERED: GABA100C14 PO (12:12)
[2017-04-17] MEDS ORDERED: LEVO750T25 PO (12:14)
[2017-04-17] MEDS ORDERED: ASPI81TA3 PO (12:14)
[2017-04-17 12:25] LABS: ALBUMIN 3.6 g/dl (3.3-4.9); ALBUMIN/GLOBULIN RATIO 1.02; C-REACTIVE PROTEIN 6.2 mg/dl (0.0-0.9); CALCIUM 9.8 mg/dl (8.4-10.2); CREATININE 0.75 mg/dl (0.61-1.24); TOTAL PROTEIN 7.1 g/dl (6.1-8.1)
--- NOTE | 2017-04-17 13:36 | RADRPT ---
PROCEDURE: XR Hip. CLINICAL INDICATION: Right hip pain TECHNIQUE: AP and frog lateral views of the right hip were performed. COMPARISON: None. FINDINGS: A noncemented right total hip arthroplasty is present in near anatomic alignment without acute radio graphic abnormalities. Antibiotic beads projecting lateral soft tissues. IMPRESSION: 1. Non cemented right total hip arthroplasty in near anatomic alignment. 2. Antibiotic beads projecting in the lateral soft tissues. RPTAT: HH .Ari Arellano MD, Date Time Electronically viewed and signed by .Ari Arellano MD, MD on 04/17/2017 13:36 .d/
[2017-04-17] MEDS ORDERED: HYDROCODONE/APAP (10/325) TAB PO ONE (14:00)
--- NOTE | 2017-04-17 14:19 | ERD ---
ER Documentation Chief Complaint Chief Complaint rt hip arthroplasty x 3 months ago , infection at post op site HPI 51-year-old male status post right hip arthroplasty 3 years ago complicated by an intra-articular infection for which he had an I&D 04/11/17 presenting to the ER with drainage from his surgical site. After the surgery, he had a wound in place which was removed prior to discharge. He states that the drain was not draining much fluid which is why it was taken out. He was started on IV ceftriaxone and oral Levaquin. However he was unable to get his antibiotics the first 2 days after discharge. However since yesterday he has been on his IV antibiotics. He has noticed clear yellow drainage from his operative site. He was seen by a home health nurse today who examined his wound and asked him to come to the ER for evaluation. His orthopedic surgeon is , but he is currently out of town. Patient denies any fevers, chills, any worsening pain. ROS All systems reviewed and are negative except as per history of present illness. Medications Home Meds Reported Medications Aspirin* (Aspirin* Chew) 81 Mg Tab.chew, 81 MG PO DAILY, TAB.CHEW 04/17/17 Levofloxacin* (Levaquin*) 750 Mg Tablet, 750 MG PO DAILY, TAB 04/17/17 Gabapentin* (Gabapentin*) 100 Mg Capsule, 100 MG PO BID, #90 CAP 04/17/17 Docusate Sodium* (Colace*) 100 Mg Capsule, 100 MG PO BID Y for CONSTIPATION, # 60 CAP 04/17/17 Lactobacillus Combo No.11 (Probiotic) 1 Each Cap.sprink, 1 CAP PO DAILY, CAP 04/17/17 Hydrocodone/Acetaminophen ([place] 10-325 Tablet) 1 Each Tablet, 1 EACH PO TID Y for PAIN, TAB 04/11/17 Discontinued Reported Medications Levofloxacin* (Levaquin*) 500 Mg Tablet, 500 MG PO DAILY, TAB STARTED 04-07- FOR 14 DAYS 04/11/17 Discontinued Scripts [Thiamine Hcl] 100 MG TAB No Conflict Check, 100 MG PO DAILY for 30 Days, TAB Prov:LIZA POON MD 04/04/14 Lisinopril* (Zestril*) 5 Mg Tab, 2.5 MG PO DAILY, #14 Prov:LIZA POON MD 04/04/14 Levofloxacin* (Levaquin*) 500 Mg Tab, 500 MG PO DAILY@06, #5 Prov:LIZA POON MD 04/04/14 Guaifenesin-Codeine Phosphate* (Robitussin* AC) 5 Ml Syrup, 10 ML PO Q4H Y for COUGH for 14 Days Prov:LIZA POON MD 04/04/14 Furosemide* (Lasix*) 40 Mg Tab, 40 MG PO BID DIURETICS, #6 Prov:LIZA POON MD 04/04/14 Albuterol Sulfate* (Ventolin HFA*) 1 Puff Inha, 2 PUFF INH Q6H RESP THERAPY Y for SHORTNESS OF BREATH for 10 Days, 2 Refills Prov:LIZA POON MD 04/04/14 Acetaminophen (TYLENOL 325 MG TAB) 325 Mg Tab, 650 MG PO Q6H Y for PAIN LEVEL 1- 3 OR FEVER for 10 Days, TAB Prov:LIZA POON MD 04/04/14 Allergies Allergies: Coded Allergies: No Known Allergy (Unverified , 04/17/17) PMhx/Soc History of Surgery: Yes (RT HIP REPLACEMENT, revision 04/11/17,COLON SX,LEFT FEMUR OBDULIO) Anesthesia Reaction: No Hx Neurological Disorder: No Hx Respiratory Disorders: Yes (PNEUMONIA, DIVERTICULITIS) Hx Cardiac Disorders: No Hx Psychiatric Problems: No Hx Miscellaneous Medical Probl: Yes (Diverticulitis s/p colon resection) Hx Alcohol Use: No Hx Substance Use: No Hx Tobacco Use: No (QUIT 8 TO 10 YRS AGO) Smoking Status: Former smoker FmHx Family History: No diabetes Physical Exam Vitals Vital Signs Date Time Temp Pulse Resp B/P Pulse Ox O2 Delivery O2 Flow Rate FiO2 04/17/17 14:28 97.9 65 18 134/62 99 Room Air 04/17/17 10:30 97.9 106 18 146/89 96 Physical Exam Const: Appearing, no apparent distress, nontoxic Head: Atraumatic Eyes: Normal Conjunctiva ENT: Normal External Ears, Nose and Mouth. Neck: Full range of motion..~ No meningismus. Resp: Clear to auscultation bilaterally Cardio: Regular rate and rhythm, no murmurs Abd: Soft, non tender, non distended. Normal bowel sounds Skin: No petechiae or rashes Back: No midline or flank tenderness Ext: No cyanosis, or edema. Right anterior hip with a well-healing surgical wound. Below the surgical site there is a small opening where the drain was leaking clear yellow fluid that is nonbloody without purulence. There is faint erythema generally overlying the surgical wound with trace pitting edema. Mild tenderness to palpation of the hip. There is pain with range of motion at the hip, but the patient states this is the same since surgery. Neur: Awake and alert Psych: Normal Mood and Affect Result Diagram: 04/17/17 1120 04/17/17 1120 Results 24 hrs Laboratory Tests Test 04/17/17 11:20 White Blood Count 7.010^3/ul Red Blood Count 3.5110^6/ul Hemoglobin 11.4g/dl Hematocrit 33.6% Mean Corpuscular Volume 95.7fl Mean Corpuscular Hemoglobin 32.5pg Mean Corpuscular Hemoglobin Concent 33.9g/dl Red Cell Distribution Width 12.3% Platelet Count 64136^3/UL Mean Platelet Volume 10.6fl Neutrophils % 67.0% Lymphocytes % 19.2% Monocytes % 10.6% Eosinophils % 2.4% Basophils % 0.4% Nucleated Red Blood Cells % 0.0/100WBC Neutrophils # 4.710^3/ul Lymphocytes # 1.310^3/ul Monocytes # 0.710^3/ul Eosinophils # 0.210^3/ul Basophils # 0.010^3/ul Nucleated Red Blood Cells # 0.010^3/ul Erythrocyte Sedimentation Rate 116mm/Hr Sodium Level 137mmol/L Potassium Level 4.0mmol/L Chloride Level 96mmol/L Carbon Dioxide Level 30mmol/L Anion Gap 15 Blood Urea Nitrogen 12mg/dl Creatinine 0.75mg/dl Glucose Level 147mg/dl Calcium Level 9.8mg/dl Total Bilirubin 0.0mg/dl Direct Bilirubin 0.00mg/dl Indirect Bilirubin 0.0mg/dl Aspartate Amino Transf (AST/SGOT) 18IU/L Alanine Aminotransferase (ALT/SGPT) 31IU/L Alkaline Phosphatase 95IU/L C-Reactive Protein 6.2mg/dl Total Protein 7.1g/dl Albumin 3.6g/dl Globulin 3.50g/dl Albumin/Globulin Ratio 1.02 Current Medications Medications (Trade) Dose Ordered Sig/Kavin Route PRN Reason Start Time Stop Time Status Last Admin Dose Admin Acetaminophen/ Hydrocodone Bitart ([place] ()) 1 tab ONCE ONCE PO 04/17/17 14:00 04/17/17 14:01 DC 04/17/17 13:48 Procedures/MDM EMERGENT LABS AND DIAGNOSTIC STUDIES: Lab Results above were reviewed and interpreted by me. CBC unremarkable BMP unremarkable CRP and ESR elevated, no prior to compare to Radiology Results as interpreted by Radiology below were reviewed by Rambo Wilder MD: Right hip x-ray: IMPRESSION: 1. Non cemented right total hip arthroplasty in near anatomic alignment. 2. Antibiotic beads projecting in the lateral soft tissues. RPTAT: HH .Ari Arellano MD, MD Date Time Electronically viewed and signed by .Ari Arellano MD, MD on 04/17/2017 13:36 Initial Nursing notes reviewed. Previous Medical Records requested via the Electronic Health Record. EMERGENCY DEPARTMENT COURSE / MEDICAL DECISION MAKING: Patient is presenting with postoperative complication. He has serous drainage from his surgical site, however there is no evidence of purulent drainage. His CRP and ESR are elevated, however this would be expected given his recent infection. I attempted to get a hold of his surgeon but I was unable to get a hold of him or anyone air support operations operator for him. I discussed with the patient either admission versus discharge with return to the ER with worsening symptoms. This time he would prefer to go home. He has a home health nurse coming tomorrow. I recommended they draw a CRP and ESR again. I provided him with the results from today's lab work. I encouraged him to return to the ER tomorrow if any of his symptoms are worsening or if the drainage changes in the concerning way. Patient agrees with the discharge plan and understands. Plan is to continue IV antibiotics with a wound check tomorrow. Departure Diagnosis: Primary Impression: Postoperative complication Surgical complication system/body Area: musculoskeletal system Surgical complication type: seroma Procedure type: musculoskeletal Qualified Code: M96.842 - Postoperative seroma of musculoskeletal structure after musculoskeletal procedure Condition: Stable Patient Instructions: Post Op Wound Check, General Referrals: SRINIVAS MOHAN Additional Instructions: Along with your blood test tomorrow, I recommend them doing a CRP and ESR test as well to make sure these numbers are trending down. Continue your IV antibiotics as prescribed. If for any reason, you or your nurse feel you are getting worse in the next 24 hours, return to the ER immediately. Otherwise follow-up with your surgeon as scheduled. BIENVENIDO WILDER MD Apr 17, 2017 14:19
[2017-04-17 14:28] VITALS: BP 134/62; PULSE 65; RESP 18; TEMP 97.9
== END 2017-04-17 15:03 | disposition home or self-care (01) ==
LOC: E/R 10:29
DX: M96.842 Postprocedural seroma of a musculoskeletal structure following a musculoskeletal system procedure (principal); Z79.82 Long term (current) use of aspirin; Z96.641 Presence of right artificial hip joint; Z87.891 Personal history of nicotine dependence
CPT/HCPCS: 36415; 73510; 80053; 85025; 85651; 86140

== ENCOUNTER 2017-05-10 05:34 | Inpatient (IN) | END 2017-05-16 19:00 | disposition home health service (06) | DRG 467 ==

== ENCOUNTER 2017-08-15 05:32 | Inpatient (IN) | END 2017-08-21 18:45 | DRG 467 ==